=== PATIENT | female | born 1975 | race American Indian/Alaskan Native ===

== ENCOUNTER 2016-12-10 06:00 | Day surgery (SDC) | payer BC ==
[~2016-12-10 06:00] MED LIST: NACL 0.9% IR ONE
[2016-12-10] MEDS ORDERED: NACL BACTERIOSTATIC INFILTRATI ONE (06:21)
--- NOTE | 2016-12-10 06:57 | Anesthesia Day of Surgery ---
Anesthesia Day of Surgery - Day of Surgery Patient Examined: Yes Patient H&P Reviewed: Yes Patient is NPO: Yes
--- NOTE | 2016-12-10 06:57 | Anesthesia Consultation ---
Anesthesia Consult and Med Hx Date of service: 12/10/16 - Airway Anesthetic Teeth Evaluation: Good ROM Head & Neck: Adequate Mental/Hyoid Distance: Adequate Mallampati Class: Class II Intubation Access Assessment: Good - Pulmonary Exam CTA: Yes - Cardiac Exam Cardiac Exam: RRR - Pre-Operative Health Status ASA Pre-Surgery Classification: ASA2 Proposed Anesthetic Plan: General - Central Nervous System Hx Psychiatric Problems: No - Hematic Hx Anemia: Yes - Other Systems Hx Cancer: No
[2016-12-10] MEDS ORDERED: ZOFRAN IV PRN (06:58)
[2016-12-10] MEDS ORDERED: PERCOCET 5/325 PO PRN ×2 (06:58→11:00)
[2016-12-10] MEDS ORDERED: VERSED IV NR (07:00)
[2016-12-10] MEDS ORDERED: PEPCID PO NR (07:00)
[2016-12-10] MEDS ORDERED: LACTATED RINGERS 1,000 ML IV SCH (07:00)
[2016-12-10] MEDS ORDERED: SILVER NITRATE TP ONE ×2 (07:19→09:00)
[2016-12-10] MEDS ORDERED: METHERGINE IM ONE (07:21)
[2016-12-10] MEDS ORDERED: SUBLIMAZE ONE (07:23)
[2016-12-10] MEDS ORDERED: XYLOCAINE MPF 2% ONE (07:23)
[2016-12-10] MEDS ORDERED: DIPRIVAN 10 MG/ML IV ONE (07:24)
[2016-12-10 08:04] LABS: Hematocrit 37.1 % (30.3-42.9); Hemoglobin 12.2 gm/dl (10.1-14.3)
--- NOTE | 2016-12-10 08:30 | Short Stay Summary ---
Short Stay Documentation Date of service: 12/10/16 Narrative H&P: Patient is a 40 year old who presented to office after being told she was having an SAB in the ED. Patient continued to have bleeding and maintained an Hcg of over 600 as of one wek ago. Decision was made to proceed with D&C. - History H&P: obtained from office Past Medical History: No medical history Past Surgical History: No surgical history Social history: - Allergies and Medications Current Medications: Allergies No Known Allergies Allergy (Unverified 12/09/16 12:09) Home Medications Medication Instructions Recorded Confirmed Last Taken Type No Known Home Medications [No 12/09/16 12/09/16 Unknown History Reported Home Medications] Active Medications Famotidine (Pepcid) 20 mg PO PREOP NR Stop: 12/10/16 23:45 Last Admin: 12/10/16 07:22 Dose: 20 mg Hydromorphone HCl (Dilaudid) 0.5 mg IV Q10MIN PRN PRN Reason: Pain , Severe (7-10) Stop: 12/13/16 06:59 Lactated Ringer's (Lactated Ringers) 1,000 mls @ 100 mls/hr IV DIRECT ARNOLDO Last Admin: 12/10/16 07:05 Dose: 100 mls/hr Midazolam HCl (Versed) 2 mg IV PREOP NR Stop: 12/10/16 23:59 Last Admin: 12/10/16 07:22 Dose: 2 mg - Physical exam General appearance: no acute distress Lungs: Clear to auscultation Breasts: deferred Heart: Regular rate, Normal S1, Normal S2 Gastrointestinal: normal, normoactive bowel sounds Female Genitourinary: other (bleeding with closed os) Extremities: no ischemia, No edema - Brief post op/procedure progress note Date of procedure: 12/10/16 Pre-op diagnosis: Incomplete Post-op diagnosis: same Procedure: D&C Anesthesia: MAC Surgeon: GLADIS OSULLIVAN Estimated blood loss: minimal Pathology: list (products of conception) Specimen disposition: to lab Condition: stable - Disposition Condition at discharge: Good Disposition: DC- TO HOME OR SELFCARE Short Stay Discharge Plan Activity: no restrictions Diet: advance as tolerated Additional Instructions: nothing per vagina Prescriptions: HYDROcodone/APAP 5-325 [[place] 5/325] 1 each PO Q6HR PRN #30 tablet PRN Reason: Pain
[2016-12-10] MEDS ORDERED: NACL 0.9% IR ONE (08:56)
[2016-12-10] MEDS ORDERED: ANCEF/STERILE WATER 2 GM/20 ML 2 GM/20 ML SYRINGE IV NR (09:00)
[2016-12-10] MEDS ORDERED: ZOFRAN ONE (09:12)
[2016-12-10] MEDS ORDERED: DECADRON ONE (09:12)
--- NOTE | 2016-12-10 09:31 | Operative Report ---
Operative Report Operative Report: Preoperative diagnoses: Incomplete Postoperative diagnosis: Same Procedure: D and E Surgeon: Eliza Russ M.D. Anesthesia: MAC EBL: Minimal Urine output: 100 mL clear Complications: None Specimens: Products of conception Procedure: Patient was taken to the OR with IV running and in place. She will probably identified as herself. She was given adequate anesthesia. She was then placed in the dorsal lithotomy position and prepped and draped in normal sterile fashion. Attention was turned to the patient's vagina. Her bladder was then drained of approximately 100 mL of clear yellow urine. A bivalve speculum was placed the patient's vagina. Cervix was visualized and grasped with a single-tooth tenaculum. The cervix was then gently dilated up to approximately 29 mm. Following this, a #7 suction curette was inserted into the patient's uterus at the level of the fundus. It was then attached to the suction machine and the curettage was performed removing products of conception. At one point the curet was removed and a medium banjo curet was introduced into the uterus to further retrieve any additional products. Following this the suction curette was reintroduced and more tissue was obtained. It was excellent hemostasis noted at the end of this portion of the procedure. At this point all instruments were removed from the patient's vagina. She was then awakened and taken to recovery in stable condition. She tolerated the procedure well
[2016-12-10] MEDS: DILAUDID IV PRN ×2 (09:42→09:54)
--- NOTE | 2016-12-10 11:49 | Post Anesthesia Evaluation ---
- Post Anesthesia Evaluation Patient Participated: Yes Airway Patent: Yes Stable Respiratory Function: Yes Nausea/Vomiting: No Temp > 96.8F: Yes Pain Manageable: Yes Adequeate Hydration: Yes Anesthesia Complications: No Block Receding Appropriately: Not Applicable Patient on Ventilator: No
[2016-12-10 12:28] VITALS: BP 126/74
== END 2016-12-10 11:36 | disposition home or self-care (01) ==
LOC: OR 06:00
PROVIDERS: ATTEND Obstetrics & Gynecology
DX: O03.4 Incomplete spontaneous abortion without complication (principal); D64.9 Anemia, unspecified
CPT/HCPCS: 36415; 59812; 85014; 85018; 86850; 86900; 86901; 88305; J0690; J1100; J1170; J2250; J2405; J2704; J3010; J7120; J2210

== ENCOUNTER 2020-01-18 09:24 | Emergency (ER) | payer BC ==
[2020-01-18 10:25] LABS: Basophils % (Auto) 0.2 % (0.0-1.8); Eosinophils # (Auto) 0.1 K/mm3 (0.0-0.4); Eosinophils % (Auto) 1.2 % (0.0-4.3); Hematocrit 35.3 % (30.3-42.9); Hemoglobin 11.7 gm/dl (10.1-14.3); Lymphocytes # (Auto) 2.1 K/mm3 (1.2-5.4); Lymphocytes % (Auto) 18.3 % (13.4-35.0); Mean Corpuscular HGB Conc 33 % (30-34); Mean Corpuscular Volume 87 fl (79-97); Monocytes # (Auto) 0.7 K/mm3 (0.0-0.8); Monocytes % (Auto) 6.3 % (0.0-7.3); Platelet Count 244 K/mm3 (140-440); Red Blood Count 4.07 M/mm3 (3.65-5.03); Red Cell Distribution Width 13.6 % (13.2-15.2)
--- NOTE | 2020-01-18 11:19 | Emergency Department Report ---
HPI - General Chief Complaint: Abdominal Pain Time Seen by Provider: 01/18/20 11:03 - HPI HPI: This is a 44-year-old -[place] female presents to the emergency department with a complaint of some vaginal bleeding, left lower quadrant abdominal and pelvic pain, and concern for an ectopic . The patient is scheduled to have a hysterectomy on January [address] Emily Russ, SEAM CHECKER. As part of the pre-op evaluation the patient was found to be . She says "I do not want to have anymore kids so I went to have an ." The patient went to a clinic on and was seen by a Dr. MYRA Ware. Apparently there the patient had an ultrasound that "showed that my uterus was full and that it was an early ", and then the patient had a D & C. She later received an email from this physician saying that there was no evidence of intrauterine and that the patient should be checked for an ectopic . The procedure was done about 2 weeks ago. The patient does have a history of previous ectopic . With this she is . ED Past Medical Hx - Past Medical History Previous Medical History?: Yes Hx Headaches / Migraines: Yes (Migraines) Hx HIV: No - Surgical History Past Surgical History?: Yes Additional Surgical History: Hx of ectopic - Social History Smoking Status: Never Smoker Substance Use Type: None - Medications Home Medications: Home Medications Medication Instructions Recorded Confirmed Last Taken Type No Known Home Medications [No 12/21/19 01/02/20 Unknown History Reported Home Medications] ED Review of Systems ROS: Stated complaint: MISCARRAGE Other details as noted in HPI Comment: All other systems reviewed and negative Constitutional: denies: chills, fever Eyes: denies: eye pain, vision change ENT: denies: ear pain, throat pain Respiratory: denies: cough, shortness of breath Cardiovascular: denies: chest pain, palpitations Gastrointestinal: abdominal pain. denies: vomiting Genitourinary: other (pelvic pain, vaginal bleeding). denies: dysuria, discharge Musculoskeletal: denies: back pain, arthralgia Skin: denies: rash, lesions Neurological: denies: headache, weakness Physical Exam - Physical Exam Vital Signs: Vital Signs 01/18/20 09:29 Temperature 98.1 F Pulse Rate 106 H Respiratory 18 Rate Blood Pressure 141/79 O2 Sat by Pulse 100 Oximetry Physical Exam: GENERAL: The patient is well-developed well-nourished. HENT: Normocephalic. Atraumatic. Patient has moist mucous membranes. EYES: Extraocular motions are intact. NECK: Supple. Trachea is midline. CHEST/LUNGS: Clear to auscultation. There is no respiratory distress noted. HEART/CARDIOVASCULAR: Regular. There is no tachycardia. There is no murmur. ABDOMEN: Abdomen is soft. Mild left lower quadrant abdominal tenderness to palpation. No guarding. Patient has normal bowel sounds. SKIN: Skin is warm and dry. NEURO: The patient is awake, alert, and oriented. The patient is cooperative. The patient has no focal neurologic deficits. Normal speech. MUSCULOSKELETAL: There is no tenderness or deformity. There is no evidence of acute injury. ED Course Vital Signs 01/18/20 09:29 Temperature 98.1 F Pulse Rate 106 H Respiratory 18 Rate Blood Pressure 141/79 O2 Sat by Pulse 100 Oximetry - Consultations Consultation #1: 01/18/20 16:41 I spoke with the patient's SEAM CHECKER, Dr. Emily Russ, we discussed the patient's recent visits to the clinic for her D&C, as well as her presentation to the emergency department and her current labs and ultrasound results. Dr. Russ would like the patient to receive a dose of methotrexate and to follow-up with her in the office on Wednesday for a repeat beta-hCG at that time. ED Medical Decision Making - Lab Data Result diagrams: 01/18/20 09:41 - Radiology Data Radiology results: report reviewed OBSTETRICAL ULTRASOUND HISTORY: . Abdominal pain. Imaging was performed by transabdominally and endovaginally. The uterus measures 11.4 x 6.6 x 7.8 cm. Endometrial stripe measures 1.7 cm. No intrauterine is identified. Right ovary measures 3.7 x 2 x 1.9 cm. Left ovary measures 3.3 x 2 x 2.3 cm. A right ovarian cyst measures 2.9 cm. Both ovaries demonstrate flow. Negative for adnexal mass or fluid. IMPRESSION: 1. Thickened endometrial stripe without intrauterine . 2. Right ovarian cyst. - Medical Decision Making This patient had presented with the concern for a possible ectopic . She had a D&C but was then sent a message from that physician saying that there was no obvious intrauterine . On examination she has some mild left lower quadrant abdominal tenderness to palpation but no guarding. Abdomen is soft and nondistended. Patient's labs show a beta-hCG of about 15,000. Her blood type is A+. An ultrasound was done that does not show any evidence of intrauterine or extrauterine . I spoke with her SEAM CHECKER who still has concern for possible ectopic given the increasing beta hCG without evidence of intrauterine . The patient will receive a dose of methotrexate and will follow-up with her SEAM CHECKER on Wednesday. Patient has been instructed to return to the emergency department with any worsening of her symptoms or with any acute distress. Critical Care Time: No Critical care attestation.: If time is entered above; I have spent that time in minutes in the direct care of this critically ill patient, excluding procedure time. ED Disposition Clinical Impression: Pelvic pain, Dysfunctional uterine bleeding, S/P dilatation and curettage Ectopic Qualifiers: Location of ectopic : unspecified location Intrauterine status: without intrauterine Qualified Code(s): O00.90 - Unspecified ectopic without intrauterine Disposition: - TO HOME OR SELFCARE Is pt being admited?: No Condition: Stable Instructions: Methotrexate (Injection), Ectopic (ED) Additional Instructions: Please follow-up with Dr. Russ this coming Wednesday. Return to the closest emergency department with any worsening of your symptoms or with any acute distress. Referrals: GLADIS RUSS MD [Staff Physician] - 01/23/20 Forms: Work/School Release Form(ED) Time of Disposition: 16:31
[2020-01-18 13:34] VITALS: BP 135/84
[2020-01-18] MEDS ORDERED: oxyCODONE /ACETAMINOPHEN 5-325MG TAB PO ONE (14:45)
--- NOTE | 2020-01-18 16:10 | Ultrasound Report ---
OBSTETRICAL ULTRASOUND HISTORY: . Abdominal pain. Imaging was performed by transabdominally and endovaginally. The uterus measures 11.4 x 6.6 x 7.8 cm. Endometrial stripe measures 1.7 cm. No intrauterine is identified. Right ovary measures 3.7 x 2 x 1.9 cm. Left ovary measures 3.3 x 2 x 2.3 cm. A right ovarian cyst emmy sures 2.9 cm. Both ovaries demonstrate flow. Negative for adnexal mass or fluid. IMPRESSION: 1. Thickened endometrial stripe without intrauterine . 2. Right ovarian cyst. Signer Name: Jon Hairston MD Signed: 01/18/2020 4:05 PM Workstation Name: [id number]
== END 2020-01-18 15:00 | disposition home or self-care (01) ==
LOC: ED 09:24
DX: O00.90 Unspecified ectopic pregnancy without intrauterine pregnancy (principal); O08.1 Delayed or excessive hemorrhage following ectopic and molar pregnancy; N93.8 Other specified abnormal uterine and vaginal bleeding; G43.909 Migraine, unspecified, not intractable, without status migrainosus; Z98.890 Other specified postprocedural states
CPT/HCPCS: 36415; 76801; 76817; 84702; 85025; 86900; 86901; 96372; 99284; J9260